=== PATIENT | female | born 1970 | race Hispanic/Latino ===

== ENCOUNTER 2022-06-01 16:31 | Emergency (ER) | payer SELFPAY ==
[2022-06-01 18:23] LABS: Urine Blood Trace-intact (Negative); Urine Glucose Negative (Negative); Urine Protein Trace (Negative)
[2022-06-01 18:33] LABS: Urine Bacteria <20 /HPF (<20); Urine Crystals Unidentified Few /HPF (None Seen); Urine Mucus 2+ /HPF (None Seen)
[2022-06-01 18:37] LABS: Absolute Lymphocytes (CBC) 3.4 K/uL (0.7-4.9); Hematocrit 35.7 % (36.0-45.0); Lymphocytes % 29.9 % (15.3-44.8); MCV 85.2 fL (80-100); MPV 7.1 fL (7.6-11.3); RBC Red Blood Cell Count 4.19 M/uL (3.86-4.86)
[2022-06-01 18:52] LABS: Albumin 3.5 g/dL (3.4-5.0); Bilirubin Total 0.3 mg/dL (0.2-1.0); Potassium 3.4 mmol/L (3.5-5.1); Protein, Total 7.3 g/dL (6.4-8.2); Thyroid Stimulating Hormone 1.69 uIU/mL (0.358-3.740)
--- NOTE | 2022-06-01 19:17 | RAD REPORT ---
EXAM DESCRIPTION: US - Abdomen Exam Limited - 06/01/2022 7:11 pm CLINICAL HISTORY: ABD PAIN COMPARISON: No comparisons FINDINGS: The gallbladder demonstrates no gallstones. No pericholecystic fluid or gallbladder wall t hickening. The common bile duct is normal measuring 4 mm. The liver demonstrates no findings of intrahepatic biliary dilatation. IMPRESSION: Unremarkable examination.
[2022-06-01 19:23] LABS: SARS-COV-2 RT PCR NEGATIVE (NEGATIVE)
[2022-06-01] MEDS ORDERED: FAMOTIDINE 20 MG/2 ML VIAL IV ONE (19:31)
[2022-06-01] MEDS ORDERED: NA CHLORIDE 0.9% 1,000 ML ONE (19:31)
--- NOTE | 2022-06-01 20:02 | RAD REPORT ---
EXAM DESCRIPTION: CTAbdomen Pelvis W Contrast - 06/01/2022 7:36 pm CLINICAL HISTORY: Abdominal pain. ABD PAIN COMPARISON: No comparisons TECHNIQUE: Biphasic CT imaging of the abdomen and pelvis was performed with 100 ml non-ionic IV cont rast. All CT scans are performed using dose optimization technique as appropriate and may include automated exposure control or mA/KV adjustment according to patient size. FINDINGS: The lung bases are clear. The liver, spleen, pancreas, adrenal glands and kidneys are within normal limits. No bowel obstruction, free air, free fluid or abscess. The appendix is normal. No evidence of signi ficant lymphadenopathy. 27 mm duodenal diverticulum. No suspicious bony findings. IMPRESSION: No acute intra-abdominal or pelvic finding.
--- NOTE | 2022-06-01 21:32 | ER ---
Nurse's Notes [facility] Name: Vannessa Kelly Age: 51 yrs Sex: Female : 1970 Arrival Date: 06/01/2022 Time: 16:32 Bed 15 Private MD: Diagnosis: Lower abdominal pain, unspecified;Dehydration Presentation: 06/01 17:33 Chief complaint: Patient states: N/V, last BM this morning and hard, and dizziness x 2 jl7 weeks. Coronavirus screen: Vaccine status: Patient reports receiving the 2nd dose of the covid vaccine. At this time, the client does not indicate any symptoms associated with coronavirus-19. Ebola Screen: No symptoms or risks identified at this time. Initial Sepsis Screen: Does the patient meet any 2 criteria? No. Patient's initial sepsis screen is negative. Does the patient have a suspected source of infection? No. Patient's initial sepsis screen is negative. Risk Assessment: Do you want to hurt yourself or someone else? Patient reports no desire to harm self or others. Onset of symptoms is unknown. 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 - Social history:: Smoking status: Patient denies any tobacco usage or history of. Screenin:01 [facility] ED Fall Risk Assessment (Adult) History of falling in the last 3 months, aa9 including since admission No falls in past 3 months (0 pts) Confusion or Disorientation No (0 pts) Intoxicated or Sedated No (0 pts) Impaired Gait No (0 pts) Mobility Assist Device Used No (0 pt) Altered Elimination No (0 pt) Score/Fall Risk Level 0 - 2 = Low Risk Oriented to surroundings, Maintained a safe environment. Abuse screen: Denies threats or abuse. Nutritional screening: Has had N/V for 3 or more days. Tuberculosis screening: No symptoms or risk factors identified. Assessment: 19:50 General: Appears uncomfortable, Behavior is cooperative, appropriate for age, anxious. aa9 19:50 Pain: Complains of pain in abdomen. Neuro: Level of Consciousness is awake, alert, aa9 obeys commands, Oriented to person, place, time, situation. Respiratory: Airway is patent Respiratory pattern is regular. GI: Abdomen is flat, Reports nausea, tolerance of fluids, tolerance of food, Patient currently denies diarrhea, vomiting. : No signs and/or symptoms were reported regarding the genitourinary system. Derm: Skin is intact, is healthy with good turgor. 21:34 Reassessment: Patient appears in no apparent distress at this time. Patient and/or aa9 family updated on plan of care and expected duration. Pain level reassessed. Patient is alert, oriented x 3, equal unlabored respirations, skin warm/dry/pink. Patient denies pain at this time. 21:59 Reassessment: Patient appears in no apparent distress at this time. Patient and/or aa9 family updated on plan of care and expected duration. Pain level reassessed. Patient is alert, oriented x 3, equal unlabored respirations, skin warm/dry/pink. Patient denies pain at this time. 22:00 Reassessment: pt requested to speak with the provider, provider notified. aa9 Vital Signs: 17:33 BP 132 / 71; Pulse 72; Resp 17; Temp 98.4; Pulse Ox 98% ; Pain 8/10; jl7 21:33 BP 115 / 72; Pulse 59; Resp 17 S; Pulse Ox 100% on R/A; aa9 21:58 BP 111 / 64; Pulse 62; Resp 19 S; Pulse Ox 99% on R/A; aa9 ED Course: 16:32 Patient arrived in ED. rg4 17:01 Poonam Hernandez FNP-C is [facility]. snw 17:01 Humberto Bower MD is Attending Physician. snw 17:35 Triage completed. jl7 17:35 Arm band placed on right wrist. Patient placed in waiting room, Patient notified of jl7 wait time. 18:30 TSH Sent. bc6 18:30 Strep Sent. bc6 18:30 COVID-19/FLU A+B Sent. bc6 18:30 CBC with Diff Sent. bc6 18:30 CMP Sent. bc6 18:30 Lipase Sent. bc6 18:30 Urine Microscopic Only Sent. bc6 18:30 Inserted saline lock: 20 gauge in left antecubital area, using aseptic technique. bc6 19:25 Veronica Dunn, RN is Primary Nurse. aa9 21:33 No provider procedures requiring assistance completed. aa9 21:34 Patient has correct armband on for positive identification. Bed in low position. Side aa9 rails up X2. Warm blanket given. 21:58 IV discontinued, intact, bleeding controlled, No redness/swelling at site. Pressure aa9 dressing applied. Administered Medications: 19:57 Drug: NS 0.9% 1000 ml Route: IV; Rate: 1 bolus; Site: left antecubital; aa9 21:33 Follow up: Response: No adverse reaction; IV Status: Completed infusion; IV Intake: aa9 1000ml 19:57 Drug: Pepcid (famotidine) 20 mg Route: IVP; Site: left antecubital; aa9 21:33 Follow up: Response: No adverse reaction aa9 Medication: 20:02 VIS not applicable for this client. aa9 Intake: 21:33 IV: 1000ml; Total: 1000ml. aa9 Outcome: 21:32 Discharge ordered by MD. pacheco 21:58 Discharged to home ambulatory. aa9 21:58 Condition: stable 21:58 Discharge instructions given to patient, Instructed on discharge instructions, follow up and referral plans. medication usage, Demonstrated understanding of instructions, follow-up care, medications, Prescriptions given X 2. 22:14 Patient left the ED. aa9 Signatures: Poonam Hernandez FNP-C FNP-Dominga Howard 4 Eric Elizabeth RN RN jl7 Veronica Dunn, RN RN aa9 Poly Francisco bc6
--- NOTE | 2022-06-01 21:33 | EDPHYS ---
Physician Documentation [facility] Name: Vannessa Kelly Age: 51 yrs Sex: Female : 1970 Arrival Date: 06/01/2022 Time: 16:32 Bed 15 Private MD: ED Physician Humberto Bower HPI: 06/01 19:37 This 51 yrs old Female presents to ER via Ambulatory with complaints of snw Dizziness, Nausea. 19:37 The patient presents with generalized weakness. Onset: The symptoms/episode snw began/occurred acutely, 2 week(s) ago, and became persistent. Severity of symptoms: At their worst the symptoms were moderate. The patient has not experienced similar symptoms in the past. The patient has not recently seen a physician. 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 - Social history:: Smoking status: Patient denies any tobacco usage or history of. ROS: 17:51 Constitutional: Negative for fever, chills, and weight loss, Eyes: Negative for injury, snw pain, redness, and discharge, ENT: Negative for injury, pain, and discharge, Neck: Negative for injury, pain, and swelling, Cardiovascular: Negative for chest pain, palpitations, and edema, Respiratory: Negative for shortness of breath, cough, wheezing, and pleuritic chest pain, : Negative for injury, bleeding, discharge, and swelling, MS/Extremity: Negative for injury and deformity, Skin: Negative for injury, rash, and discoloration. 17:51 Abdomen/GI: Positive for abdominal pain, nausea and vomiting, of the right lower quadrant and left lower quadrant. 17:51 Back: Positive for heaviness. 17:58 Neuro: Positive for dizziness. snw Exam: 17:51 Constitutional: This is a well developed, well nourished patient who is awake, alert, snw and in no acute distress. Head/Face: Normocephalic, atraumatic. Eyes: Pupils equal round and reactive to light, extra-ocular motions intact. Lids and lashes normal. Conjunctiva and sclera are non-icteric and not injected. Cornea within normal limits. Periorbital areas with no swelling, redness, or edema. Neck: Trachea midline, no thyromegaly or masses palpated, and no cervical lymphadenopathy. Supple, full range of motion without nuchal rigidity, or vertebral point tenderness. No Meningismus. Chest/axilla: Normal chest wall appearance and motion. Nontender with no deformity. No lesions are appreciated. Cardiovascular: Regular rate and rhythm with a normal S1 and S2. No gallops, murmurs, or rubs. Normal PMI, no JVD. No pulse deficits. Respiratory: Lungs have equal breath sounds bilaterally, clear to auscultation and percussion. No rales, rhonchi or wheezes noted. No increased work of breathing, no retractions or nasal flaring. Back: No spinal tenderness. No costovertebral tenderness. Full range of motion. Skin: Warm, dry with normal turgor. Normal color with no rashes, no lesions, and no evidence of cellulitis. MS/ Extremity: Pulses equal, no cyanosis. Neurovascular intact. Full, normal range of motion. Neuro: Awake and alert, GCS 15, oriented to person, place, time, and situation. Cranial nerves II-XII grossly intact. Motor strength 5/5 in all extremities. Sensory grossly intact. Cerebellar exam normal. Normal gait. Psych: Awake, alert, with orientation to person, place and time. Behavior, mood, and affect are within normal limits. 17:51 ENT: TM's: are normal, Nose: is normal, Mouth: is normal, Posterior pharynx: erythema, that is mild, Voice: is normal. 17:51 Abdomen/GI: Inspection: distension, that is moderate, Bowel sounds: normal, in all quadrants, Palpation: mild abdominal tenderness, in the right lower quadrant and left lower quadrant. Vital Signs: 17:33 BP 132 / 71; Pulse 72; Resp 17; Temp 98.4; Pulse Ox 98% ; Pain 8/10; jl7 21:33 BP 115 / 72; Pulse 59; Resp 17 S; Pulse Ox 100% on R/A; aa9 21:58 BP 111 / 64; Pulse 62; Resp 19 S; Pulse Ox 99% on R/A; aa9 MDM: 17:37 Patient medically screened. becky 19:36 Differential diagnosis: generalized weakness, hypovolemia, syncope, vertigo. Data snw reviewed: vital signs, nurses notes, lab test result(s), radiologic studies. Counseling: I had a detailed discussion with the patient and/or guardian regarding: the historical points, exam findings, and any diagnostic results supporting the discharge/admit diagnosis, lab results, radiology results. Awaiting: Pt in CT for CT abd/pelvis. 06/01 17:50 Order name: CBC with Diff snw 06/01 17:50 Order name: CMP snw 06/01 17:50 Order name: Lipase snw 06/01 17:50 Order name: Urine Microscopic Only snw 06/01 17:50 Order name: COVID-19/FLU A+B snw 06/01 17:50 Order name: Strep snw 06/01 17:50 Order name: TSH snw 06/01 18:23 Order name: Urine Dipstick-Ancillary; Complete Time: 18:24 EDCA 06/01 18:29 Order name: Urine --Ancillary (enter results) 06/01 18:34 Order name: Urine Microscopic Only; Complete Time: 18:37 EDMS 06/01 18:35 Order name: Group A Streptococcus Rapid Sc; Complete Time: 18:37 EDMS 06/01 18:38 Order name: CBC with Automated Diff; Complete Time: 18:38 EDMS 06/01 18:41 Order name: Urine --Ancillary; Complete Time: 18:52 EDMS 06/01 18:52 Order name: Comprehensive Metabolic Panel; Complete Time: 18:52 EDCA 06/01 17:50 Order name: IV Saline Lock; Complete Time: 18:30 snw 06/01 17:50 Order name: Labs collected and sent; Complete Time: 18:30 snw 06/01 17:50 Order name: Urine Dipstick-Ancillary (obtain specimen); Complete Time: 18:30 snw 06/01 17:50 Order name: Urine Test (obtain specimen); Complete Time: 18:30 snw 06/01 18:52 Order name: Lipase; Complete Time: 18:52 EDMS 06/01 18:52 Order name: Thyroid Stimulating Hormone; Complete Time: 18:52 EDMS 06/01 18:53 Order name: US Abdomen Limited snw 06/01 18:53 Order name: CT Abd/Pelvis - IV Contrast Only snw 06/01 19:17 Order name: US; Complete Time: 19:18 EDMS 06/01 19:23 Order name: COVID-19/FLU A+B; Complete Time: 19:25 EDMS 06/01 20:03 Order name: CT; Complete Time: 20:19 EDMS Administered Medications: 19:57 Drug: NS 0.9% 1000 ml Route: IV; Rate: 1 bolus; Site: left antecubital; aa9 21:33 Follow up: Response: No adverse reaction; IV Status: Completed infusion; IV Intake: aa9 1000ml 19:57 Drug: Pepcid (famotidine) 20 mg Route: IVP; Site: left antecubital; aa9 21:33 Follow up: Response: No adverse reaction aa9 Disposition Summary: 06/01/22 21:32 Discharge Ordered Location: Home snw Condition: Stable snw Diagnosis - Lower abdominal pain, unspecified snw - Dehydration snw Followup: snw - With: Emergency Department - When: As needed - Reason: Worsening of condition Followup: snw - With: Private Physician - When: 2 - 3 days - Reason: Recheck today's complaints, Continuance of care, Re-evaluation by your physician Discharge Instructions: - Discharge Summary Sheet snw - Abdominal Pain, Adult snw - Dehydration, Adult snw - Rehydration, Adult snw - [place] Diet snw Forms: - Medication Reconciliation Form snw - Thank You Letter snw - Antibiotic Education snw - Prescription Opioid Use snw - Work release form snw Prescriptions: - Mobic 7.5 mg Oral Tablet - take 1 tablet by ORAL route once daily take with food; 20 tablet; Refills: 0, snw Product Selection Permitted - promethazine 25 mg Oral Tablet - take 1 tablet by ORAL route every 6 hours As needed; 20 tablet; Refills: 0, snw Product Selection Permitted Signatures: Dispatcher [employer] Humberto Bello MD MD cha Waters, Shelly, WIRE TAPER-C WIRE TAPER-Csnw Eric Elizabeth, RN RN jl7 Veronica Dunn, RN RN aa9
[2022-06-01 23:29] VITALS: TEMP 98.4
[2022-06-01 23:31] VITALS: BP 111/64; O2SAT 99
== END 2022-06-01 22:14 | disposition home or self-care (01) ==
LOC: ER 16:31
DX: E86.0 Dehydration (principal); R10.30 Lower abdominal pain, unspecified; Z20.822 Contact with and (suspected) exposure to COVID-19
CPT/HCPCS: 0240U; 36415; 74177; 76705; 80053; 81003; 81015; 81025; 83690; 84443; 85025; 87070; 87081; 96361; 96374; 99284; J7030; Q9967

== ENCOUNTER 2022-08-04 15:12 | Emergency (ER) | payer SELFPAY ==
--- NOTE | 2022-08-04 16:50 | RAD REPORT ---
EXAM DESCRIPTION: RAD - C Spine Ap/Lat - 08/04/2022 4:10 pm CLINICAL HISTORY: PAIN COMPARISON: No comparisons FINDINGS: Cervical bodies are normal in height and alignment.No fracture or acute bony process seen. Moderate disc thinning with posterior osteophyte formation at C4-5, C5-6 and C6-7. No prevertebral soft tissue thickening or other suspicious soft tissue finding. IMPRESSION: Moderate lower cervical spondylosis.
--- NOTE | 2022-08-04 16:53 | RAD REPORT ---
EXAM DESCRIPTION: RAD - Humerus Left - 08/04/2022 4:09 pm CLINICAL HISTORY: fall COMPARISON: No comparisons FINDINGS: No acute fracture or dislocation.
--- NOTE | 2022-08-04 16:54 | RAD REPORT ---
EXAM DESCRIPTION: RAD - Clavicle Left - 08/04/2022 4:09 pm CLINICAL HISTORY: PAIN COMPARISON: No comparisons FINDINGS: Deformity of the distal clavicle likely related to old trauma. No acute fracture or disloc ation seen.
--- NOTE | 2022-08-04 16:56 | RAD REPORT ---
EXAM DESCRIPTION: RAD - Scapula Left - 08/04/2022 4:09 pm CLINICAL HISTORY: FALL;Pain COMPARISON: No comparisons FINDINGS: No fracture or dislocation seen.
[2022-08-04] MEDS ORDERED: IBUPROFEN 400 MG TAB ONE (17:36)
--- NOTE | 2022-08-04 17:38 | ER ---
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 patient is complaining of left shoulder and neck pain. Coronavirus screen: At this time, the client does not indicate any symptoms associated with coronavirus-19. Ebola Screen: No symptoms or risks identified at this time. Initial Sepsis Screen: Does the patient meet any 2 criteria? No. Patient's initial sepsis screen is negative. Does the patient have a suspected source of infection? No. Patient's initial sepsis screen is negative. Risk Assessment: Do you want to hurt yourself or someone else? Patient reports no desire to harm self or others. Onset of symptoms was August 04, 2022. 15:23 Method Of Arrival: Ambulatory ap3 15:23 Acuity: LUCIA 4 ap3 Triage Assessment: 15:25 General: Appears uncomfortable, Behavior is calm, cooperative, appropriate for age. ap3 Pain: Complains of pain in left shoulder and left side of neck. Neuro: Level of Consciousness is awake, alert, obeys commands, Oriented to person, place, time, situation. Cardiovascular: Patient's skin is warm and dry. Respiratory: Airway is patent Respiratory effort is even, unlabored, Respiratory pattern is regular, symmetrical. Musculoskeletal: Reports pain in left shoulder. Injury Description: Crush injury. Historical: - Allergies: 15:25 No Known Allergies; ap3 - Home Meds: 15:25 None [Active]; ap3 - PMHx: 15:25 None; ap3 - Immunization history:: Client reports receiving the 2nd dose of the Covid vaccine. - Social history:: Smoking status: Patient denies any tobacco usage or history of. Screenin:26 Abuse screen: Denies threats or abuse. Nutritional screening: No deficits noted. ap3 Tuberculosis screening: No symptoms or risk factors identified. Assessment: 17:37 General: Appears uncomfortable, Behavior is calm, cooperative, appropriate for age. mb9 Pain: Complains of pain in left shoulder Quality of pain is described as throbbing. Neuro: Level of Consciousness is awake, alert, obeys commands, Oriented to person, place, time, situation, Appropriate for age. Cardiovascular: Patient's skin is warm and dry. Respiratory: Airway is patent Respiratory effort is even, unlabored, Respiratory pattern is regular, symmetrical. Derm: Skin is pink, warm \T\ dry. Musculoskeletal: Range of motion: limited in left shoulder. Vital Signs: 15:23 BP 128 / 80; Pulse 71; Resp 17; Temp 97.9; Pulse Ox 98% ; Weight 70.31 kg; Height 5 ft. ap3 3 in. ; Pain 8/10; 17:37 BP 118 / 77; Pulse 62; Resp 16; Pulse Ox 99% ; mb9 15:23 Body Mass Index 27.46 (70.31 kg, 160.02 cm) ap3 15:23 Pain Scale: Adult ap3 ED Course: 15:16 Patient arrived in ED. rg4 15:18 Humberto Atkins PA is PHCP. cp 15:19 Guanaco Moseley DO is Attending Physician. cp 15:25 Triage completed. ap3 15:26 Arm band placed on right wrist. ap3 16:10 XRAY Scapula LEFT In Process Unspecified. EDMS 16:10 XRAY Humerus LEFT In Process Unspecified. EDMS 16:10 XRAY Clavicle LEFT In Process Unspecified. EDMS 16:10 XRAY C Spine Ap/lat In Process Unspecified. EDMS 17:37 Meredith Williamson, ZORAIDA is Primary Nurse. mb9 17:38 No provider procedures requiring assistance completed. Patient did not have IV access mb9 during this emergency room visit. Administered Medications: 17:32 Drug: Ibuprofen PO 800 mg Route: PO; mb9 17:38 Follow up: Response: No adverse reaction mb9 Medication: 17:38 VIS not applicable for this client. mb9 Outcome: 17:37 Discharge ordered by . cp 17:47 Discharged to home ambulatory. mb9 17:47 Condition: stable 17:47 Discharge instructions given to patient, Instructed on discharge instructions, follow up and referral plans. Demonstrated understanding of instructions, follow-up care. 17:48 Patient left the ED. mb9 Signatures: Dispatcher [employer] FABIANAMS Humberto Atkins PA PA cp Garcia, Rubi rg4 Adele Gordon RN RN ap3 Meredith Williamson RN RN mb9
--- NOTE | 2022-08-04 17:38 | EDPHYS ---
Physician Documentation [facility] Name: Vannessa Kelly Age: 52 yrs Sex: Female : 1970 Arrival Date: 08/04/2022 Time: 15:12 Bed DX3 Private MD: ED Physician Guanaco Moseley HPI: 08/04 15:35 This 52 yrs old Female presents to ER via Ambulatory with complaints of cp Shoulder Injury. 15:35 The patient or guardian complains of an injury, pain, that is acute. left shoulder. 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 Patient landed on to her left shoulder. She is now having pain to left shoulder and left back and neck. Historical: - Allergies: 15:25 No Known Allergies; ap3 - Home Meds: 15:25 None [Active]; ap3 - PMHx: 15:25 None; ap3 - Immunization history:: Client reports receiving the 2nd dose of the Covid vaccine. - Social history:: Smoking status: Patient denies any tobacco usage or history of. ROS: 15:40 Constitutional: Negative for body aches, chills, fever, poor PO intake. cp 15:40 Eyes: Negative for injury, pain, redness, and discharge. cp 15:40 Neck: Positive for pain with movement, pain at rest. 15:40 Cardiovascular: Negative for chest pain. 15:40 Respiratory: Negative for cough, shortness of breath, wheezing. 15:40 Abdomen/GI: Negative for abdominal pain, vomiting, diarrhea, constipation. 15:40 Back: Positive for pain at rest, pain with movement. 15:40 MS/extremity: Positive for pain, of the left shoulder, Negative for decreased range of motion, deformity, paresthesias. 15:40 Neuro: Negative for altered mental status, dizziness, headache, numbness, tingling, weakness. 15:40 All other systems are negative. Exam: 15:45 Constitutional: The patient appears in no acute distress, alert, awake, cp non-diaphoretic, non-toxic, well developed, well nourished, uncomfortable. 15:45 Head/Face: Normocephalic, atraumatic. cp 15:45 Eyes: Periorbital structures: appear normal, Conjunctiva: normal, no exudate, no injection, Sclera: no appreciated abnormality, Lids and lashes: appear normal, bilaterally. 15:45 ENT: External ear(s): are unremarkable, Nose: is normal, Mouth: Lips: moist, Oral mucosa: pink and intact, moist, Posterior pharynx: is normal, airway is patent, no erythema, no exudate. 15:45 Neck: External neck: tenderness, that is mild, of the left mid cervical area and left trapezius, C-spine: vertebral tenderness, is not appreciated, crepitus, is not appreciated, ROM/movement: pain, that is mild, with any movement, limited range of motion, is not appreciated, nuchal rigidity, is not appreciated. 15:45 Chest/axilla: Inspection: normal. 15:45 Cardiovascular: Rate: normal, Rhythm: regular. 15:45 Respiratory: the patient does not display signs of respiratory distress, Respirations: normal, no use of accessory muscles, no retractions, labored breathing, is not present, Breath sounds: are clear throughout, no decreased breath sounds, no stridor, no wheezing. 15:45 Abdomen/GI: Exam negative for discomfort, distension, guarding, Inspection: abdomen appears normal. 15:45 Back: pain, that is mild, of the left trapezius and left scapular area, ROM is normal, vertebral tenderness, is not appreciated. 15:45 Musculoskeletal/extremity: Extremities: grossly normal except: noted in the left shoulder and left upper arm: pain, tenderness, There is no evidence of decreased ROM, deformity, Pulses: noted to be 2+ in the left radial artery, the left hand and left arm Sensation intact. 15:45 Neuro: Orientation: to person, place \T\ time. Mentation: is normal, Motor: moves all fours, strength is normal, Sensation: is normal. Vital Signs: 15:23 BP 128 / 80; Pulse 71; Resp 17; Temp 97.9; Pulse Ox 98% ; Weight 70.31 kg; Height 5 ft. ap3 3 in. ; Pain 8/10; 17:37 BP 118 / 77; Pulse 62; Resp 16; Pulse Ox 99% ; mb9 15:23 Body Mass Index 27.46 (70.31 kg, 160.02 cm) ap3 15:23 Pain Scale: Adult ap3 MDM: 16:00 Differential diagnosis: Anterior dislocation with fracture, Anterior dislocation cp without fracture, Posterior dislocation with fracture, Posterior dislocation without fracture, humeral head fracture, cervical fracture, contusion, rotator cuff injury. 16:05 Patient medically screened. cp 17:35 Data reviewed: vital signs, nurses notes, radiologic studies, plain films. cp 17:36 Test considered but Not performed: CT: cervical spine. cp 17:36 Counseling: I had a detailed discussion with the patient and/or guardian regarding: the cp historical points, exam findings, and any diagnostic results supporting the discharge/admit diagnosis, radiology results, the need for outpatient follow up, a family practitioner, to return to the emergency department if symptoms worsen or persist or if there are any questions or concerns that arise at home. Response to treatment: the patient's symptoms have mildly improved after treatment, and as a result, I will discharge patient. 08/04 15:31 Order name: XRAY Scapula LEFT; Complete Time: 17:33 cp 08/04 17:33 Interpretation: Report reviewed. cp 08/04 15:31 Order name: XRAY Humerus LEFT; Complete Time: 17:33 cp 08/04 17:33 Interpretation: Report reviewed. cp 08/04 15:31 Order name: XRAY Clavicle LEFT; Complete Time: 17:33 cp 08/04 17:33 Interpretation: Report reviewed. cp 08/04 15:31 Order name: XRAY C Spine Ap/lat; Complete Time: 17:33 cp 08/04 17:34 Interpretation: Report reviewed. cp 08/04 17:34 Order name: Sling; Complete Time: 17:38 cp Administered Medications: 17:32 Drug: Ibuprofen PO 800 mg Route: PO; mb9 17:38 Follow up: Response: No adverse reaction mb9 Disposition: 18:49 Co-signature as Attending Physician, Guanaco Moseley DO I was immediately available on-site ms3 in the Emergency Department for consultation in the care of the patient. Disposition Summary: 08/04/22 17:37 Discharge Ordered Location: Home cp Problem: new cp Symptoms: have improved cp Condition: Stable cp Diagnosis - Fall on same level, unspecified cp - Dorsalgia, unspecified cp - Cervicalgia cp - Pain in left upper arm cp Followup: cp - With: Private Physician - When: 2 - 3 days - Reason: Recheck today's complaints Discharge Instructions: - Discharge Summary Sheet cp - Acute Back Pain, Adult cp - Musculoskeletal Pain cp - Shoulder Range of Motion Exercises cp - Heat Therapy cp - Neck Exercises cp Forms: - Medication Reconciliation Form cp - Thank You Letter cp - Antibiotic Education cp - Prescription Opioid Use cp - Work release form mb9 Prescriptions: - Ibuprofen 800 mg Oral Tablet - take 1 tablet by ORAL route every 8 hours As needed take with food; 30 tablet; cp Refills: 0, Product Selection Permitted - Cyclobenzaprine 10 mg Oral Tablet - take 1 tablet by ORAL route every 8 hours As needed; 20 tablet; Refills: 0, cp Product Selection Permitted Signatures: Dispatcher [employer] EDMS Humberto Atkins PA PA cp Prokisch, Amanda RN RN ap3 Guanaco Moseley DO DO ms3 Clay, Meredith Burns RN RN mb9 Corrections: (The following items were deleted from the chart) 08/05 16:52 08/04 15:35 Context: The problem was sustained at work, Patient reports she was cp assisting a patient at work with transferring from , cp
[2022-08-04 18:12] VITALS: TEMP 97.9
[2022-08-04 18:13] VITALS: BP 118/77; O2SAT 99
== END 2022-08-04 17:48 | disposition home or self-care (01) ==
LOC: ER 15:12
DX: M25.512 Pain in left shoulder (principal); M54.9 Dorsalgia, unspecified; M54.2 Cervicalgia; W18.30XA Fall on same level, unspecified, initial encounter
CPT/HCPCS: 72040; 73010; 99283